=== PATIENT | male | born 1950 | race Caucasian/White ===

== ENCOUNTER → 2018-06-10 | Outpatient (CLI) | payer MEDICARE ==
--- NOTE | 2018-06-10 11:11 | XR ---
EXAMINATION TYPE: XR ribs LT w pa chest xray DATE OF EXAM: 06/10/2018 CLINICAL HISTORY: Chest and left-sided rib pain after fall injury last week. TECHNIQUE: Single frontal view of the chest is obtained. A frontal and oblique images the left-sided ribs are acquired. COMPARISON: Chest x-ray June 24, 2010. FINDINGS: Slight elevation and eventration right hemidiaphragm is redemonstrated. There is chronic pa renchymal change without suspicious focal air space opacity, pleural effusion, or pneumothorax seen. The cardiac silhouette size is mildly enlarged. The osseous structures are intact. Dedicated images of the left-sided ribs show no acute displaced fracture. Overlying soft tissue is un remarkable. IMPRESSION: 1. Chronic parenchymal changes and mild cardiomegaly without acute pulmonary process. 2. No acute displaced left-sided rib fractures are evident.
== END | disposition home or self-care (01) ==
LOC: RADXRYALE 10:28
PROVIDERS: ATTEND Physician Assistant Medical
DX: I51.7 Cardiomegaly (principal); R91.8 Other nonspecific abnormal finding of lung field; R07.82 Intercostal pain

== ENCOUNTER → 2024-08-06 | Outpatient (CLI) | payer MEDICARE ==
--- NOTE | 2024-08-06 12:54 | US ---
EXAMINATION TYPE: US venous doppler duplex LE DATE OF EXAM: 08/06/2024 12:39 PM COMPARISON: NONE CLINICAL INDICATION: Male, 73 years old with history of R60.0 LOCALIZED EDEMA; bilateral pain & swell ing x 2 weeks on and off, pt is currently taking baby aspirin, no hx of dvt TECHNIQUE: The lower extremity deep venous system is examined utilizing real time linear array sonog bridgette with graded compression, color doppler sonography, and spectral doppler. SIDE PERFORMED: Bilateral FINDINGS: VESSELS IMAGED: Common Femoral Vein Deep Femoral Vein Greater Saphenous Vein * Femoral Vein Popliteal Vein Small Saphenous Vein * Proximal Calf Veins (* superficial vessels) Right Leg: appears negative for DVTpatency of the vessels. Spectral waveforms are within normal limi ts. Calf veins slightly limited due to severe edema Left Leg: appears negative for DVT shows patency of the vessels. Spectral waveforms are within gabriel l limits. Calf veins slightly limited due to severe edema Lt groin: varicose veins seen, veins are compressible and shows color doppler flow Probable prominent lymph nodes seen within Lt groin: 4.0x1.0x2.7cm IMPRESSION: 1. No visualized deep venous thrombosis of the bilateral lower extremities. The calf veins are sligh tly limited due to severe edema. 2. Left groin and varicose patent veins identified. 3. Prominent benign-appearing left groin lymph node. [facility], , 08/06/2024 12:51 PM
== END | disposition home or self-care (01) ==
LOC: RADUSWWP 12:06
PROVIDERS: ATTEND Family Medicine
DX: R60.0 Localized edema (principal); R59.0 Localized enlarged lymph nodes
CPT/HCPCS: 93970

== ENCOUNTER 2024-08-30 11:18 | Emergency (ER) | payer MEDICARE ==
[2024-08-30 11:38] VITALS: TEMP 98.2
--- NOTE | 2024-08-30 11:43 | ED ---
Male Urogenital HPI - General Source: patient, RN notes reviewed Mode of arrival: ambulatory Limitations: no limitations <Francisco Omer - Last Filed: 08/30/24 11:41> <Rickey Iglesias - Last Filed: 08/30/24 13:27> - General Chief complaint: Urogenital Stated complaint: Hematuria Time Seen by Provider: 08/30/24 11:27 - History of Present Illness Initial comments: Quick note: This is a 73-year-old male presenting with neighbor for difficulty urinating and blood clots in urine x 3 days. Patient states he was recently at Dr. Aviles's office where he was prescribed antibiotics and Flomax for a UTI and enlarged prostate. States he has been passing blood clots and having difficulty emptying his bladder since that time. 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 Schofield tomorrow. (Francisco Omer) Dictation was produced using ANPI dictation software. please excuse any grammatical, word or spelling errors. Chief Complaint: 73-year-old male with urinary tension History of Present Illness: Patient is a 73-year-old male presents with urinary retention. Neighbor at the bedside states that he has not urinated in 4 days. Patient states he is dealing with a UTI. He has been urinating blood clots. Does complain of some mild suprapubic discomfort The ROS documented in this emergency department record has been reviewed and confirmed by me. Those systems with pertinent positive or negative responses have been documented in the HPI. All other systems are other negative and/or noncontributory. (Rickey Iglesias) - Related Data Home Medications Medication Instructions Recorded Confirmed ALPRAZolam [Xanax] 0.25 mg PO DAILY 09/22/14 11/29/14 Aspirin 81 mg PO DAILY 09/22/14 11/29/14 Atorvastatin [Lipitor] 10 mg PO DAILY 09/22/14 11/29/14 Multivitamin [Men's Multi-Vitamin] 1 each PO DAILY 09/22/14 11/29/14 [place]-3 Fatty Acids/Fish Oil [Fish 1 each PO DAILY 09/22/14 11/29/14 Oil 1,000 mg Softgel] Propranolol [Inderal] 10 mg PO DAILY PRN 09/22/14 11/29/14 Triamterene-Hctz 37.5-25Mg 1 each PO DAILY 09/22/14 11/29/14 [Dyazide] Cholecalciferol [Vitamin D3] 3,000 unit PO DAILY 09/28/14 11/29/14 Desipramine HCl [Norpramin] 10 mg PO HS 11/29/14 11/29/14 Morphine Sulphate 30 mg PO Q4HR PRN 11/29/14 11/29/14 Pregabalin [Lyrica] 1 tab PO Q8HR 11/29/14 11/29/14 Allergies Allergy/AdvReac Type Severity Reaction Status Date / Time cephalexin monohydrate AdvReac Rash/Hives Verified 08/30/24 11:38 [From Keflex] propoxyphene HCl AdvReac Rash/Hives Verified 08/30/24 11:38 [From Darvon] Review of Systems ROS Other: All systems not noted in ROS Statement are negative. <Francisco Omer - Last Filed: 08/30/24 11:41> ROS Other: All systems not noted in ROS Statement are negative. <Rickey Iglesias - Last Filed: 08/30/24 13:27> ROS Statement: Those systems with pertinent positive or pertinent negative responses have been documented in the HPI. Past Medical History Past Medical History: Hyperlipidemia, Musculoskeletal Disorder, Osteoarthritis (OA) History of Any Multi-Drug Resistant Organisms: None Reported Past Surgical History: Hernia Repair, Tonsillectomy Past Anesthesia/Blood Transfusion Reactions: No Reported Reaction Past Psychological History: Anxiety, Panic Disorder Past Alcohol Use History: None Reported Past Drug Use History: None Reported - Past Family History Mother Family Medical History: Cancer Brother(s) Family Medical History: Cancer <Francisco Omer - Last Filed: 08/30/24 11:41> General Exam Limitations: no limitations <Francisco Omer - Last Filed: 08/30/24 11:41> <Rickey Iglesias - Last Filed: 08/30/24 13:27> - General Exam Comments Initial Comments: Visual Physical Exam Vital signs reviewed General: Well-appearing, nontoxic, no acute distress. Head: Normocephalic, atraumatic Eyes: PERRLA, EOMI ENT: Airway patent Chest: Nonlabored breathing Skin: No visual rash, normal skin tone Neuro: Alert and oriented 3 Musculoskeletal: No gross abnormalities (Francisco Omer) PHYSICAL EXAM: General Impression: Alert and oriented x3, not in acute distress HEENT: Normocephalic atraumatic, extra-ocular movements intact, pupils equal and reactive to light bilaterally, mucous membranes moist. Cardiovascular: Heart regular rate and rhythm Chest: Able to complete full sentences, no retractions, no tachypnea Abdomen: abdomen soft, suprapubic fullness, non-distended, no organomegaly Musculoskeletal: Pulses present and equal in all extremities, no peripheral edema Motor: no focal deficits noted Neurological: CN II-XII grossly intact, no focal motor or sensory deficits noted Skin: Intact with no visualized rashes Psych: Normal affect and mood (Rickey Iglesias) Course Vital Signs 08/30/24 11:34 Temperature 98.2 F Pulse Rate 122 H Respiratory 20 Rate Blood Pressure 137/80 O2 Sat by Pulse 96 Oximetry Medical Decision Making <Francisco Omer - Last Filed: 08/30/24 11:41> <Rickey Iglesias - Last Filed: 08/30/24 13:27> - Medical Decision Making I completed the quick note portion of this chart signed BRUCE Johnson (Francisco Omer) Was pt. sent in by a medical professional or institution (LIZZY Nash, REFRIGERATION PLANT CORK INSULATOR, urgent care, hospital, or penitentiary...) When possible be specific @ -No Did you speak to anyone other than the patient for history (EMS, parent, family, police, friend...)? What history was obtained from this source @ -No Did you review nursing and triage notes (agree or disagree)? Why? @ -I reviewed and agree with nursing and triage notes Were old charts reviewed (outside hosp., previous admission, EMS record, old EKG, old radiological studies, urgent care reports/EKG's, penitentiary records)? Report findings @ -No old charts were reviewed Differential Diagnosis (chest pain, altered mental status, abdominal pain women, abdominal pain men, vaginal bleeding, musculoskeletal, weakness, fever, dyspnea, syncope, headache, dizziness, GI bleed, back pain, seizure, CVA, palpatations, mental health)? @ -Differential Abdominal Pain Men: Appendicitis, cholecystitis, diverticulosis, ischemic bowel, pancreatitis, hepatitis, UTI, gastroenteritis, AAA, incarcerated hernia, bowel obstruction, constipation, inflammatory bowel, hepatitis, peptic ulcer disease, splenic infa rction, perforated viscus, testicular torsion, this is not meant to be an all- inclusive list EKG interpreted by me (3pts min.). @ -None done X-rays interpreted by me (1pt min.). @ -None done CT interpreted by me (1pt min.). @ -None done U/S interpreted by me (1pt. min.). @ -None done What testing was considered but not performed or refused? (CT, X-rays, U/S, labs)? Why? @ -None What meds were considered but not given or refused? Why? @ -None Was smoking cessation discussed for >3mins.? @ -No Were there social determinants of health that impacted care today? How? (Homelessness, low income, unemployed, alcoholism, drug addiction, transportation, low edu. Level, literacy, decrease access to med. care, correction, rehab)? @ -No Was there de-escalation of care discussed even if they declined (Discuss DNR or withdrawal of care, Hospice)? DNR status @ -No What co-morbidities impacted this encounter? (DM, HTN, Smoking, COPD, CAD, Cancer, CVA, ARF, Chemo, Hep., AIDS, mental health diagnosis, sleep apnea, morbid obesity)? @ -None Was patient admitted / discharged? Hospital course, mention meds given and route, prescriptions, significant lab abnormalities, going to OR and other pertinent info. @ -73-year-old male with urinary tension. Bladder scan shows 750 cc of urine. Caceres catheter placed with bloody urine collected at the Caceres bag. Patient reports significant improvement of his symptoms. Urine was bloody. Caceres catheter flushed till some clearance was achieved. Pending metabolic panel. Patient discharged with referral to urology. Did you discuss the management of the patient with other professionals (professionals i.e. , PA, REFRIGERATION PLANT CORK INSULATOR, lab, RT, psych nurse, foster care social worker, surveillance technician, teacher, chief supply chain officer, shelter case manager)? Give summary @ -No Was critical care preformed (if so, how long)? @ -No Undiagnosed new problem with uncertain prognosis? @ -No Drug Therapy requiring intensive monitoring for toxicity (Heparin, Nitro, Insulin, Cardizem)? @ -No Were any procedures done? @ -No Diagnosis/symptom? Acute, or Chronic, or Acute on Chronic? Uncomplicated (without systemic symptoms) or Complicated (systemic symptoms)? @ -Urinary retention Side effects of treatment? @ -No Exacerbation, Progression, or Severe Exacerbation? @ -No Poses a threat to life or bodily function? How? (Chest pain, [place], [place], pneumonia, PE, COPD, DKA, ARF, appy, cholecystitis, CVA, Diverticulitis, Homicidal, Suicidal, threat to staff... and all critical care pts) @ -yes (Rickey Iglesias) - Lab Data Lab Results 08/30/24 Range/Units 12:18 Urine Color Dark Red Urine Appearance Bloody (Clear) Urine RBC >182 H (0-5) /hpf Urine WBC 54 H (0-5) /hpf Disposition <Francisco Omer - Last Filed: 08/30/24 11:41> Is patient prescribed a controlled substance at d/c from ED?: No Time of Disposition: 13:27 <Rickey Iglesias - Last Filed: 08/30/24 13:27> Clinical Impression: Urinary retention Disposition: HOME SELF-CARE Condition: Good Instructions (If sedation given, give patient instructions): Caceres Catheter Placement and Care (ED) Referrals: Evens Rubi MD [STAFF PHYSICIAN] - 1-2 days
[2024-08-30 12:31] LABS: RBC,Urine >182 /hpf (0-5); WBC,Urine 54 /hpf (0-5)
[2024-08-30 12:32] LABS: Appearance,Urine Bloody (Clear); Color,Urine Dark Red
[2024-08-30 14:06] VITALS: BP 134/79; PULSE 99; RESP 18
[2024-08-30 14:32] LABS: African American GFR (CKD) 86 (>60 ml/min/1.73 sqM); Anion Gap 13 mmol/L; Blood Urea Nitrogen 17 mg/dL (9-20); Calcium 9.5 mg/dL (8.4-10.2); Carbon Dioxide 29 mmol/L (22-30); Chloride 92 mmol/L (98-107); Glucose 136 mg/dL (74-99); Non-African American GFR(CKD) 75 (>60 ml/min/1.73 sqM); Potassium 3.4 mmol/L (3.5-5.1); Sodium 134 mmol/L (137-145)
== END 2024-08-30 14:30 | disposition home or self-care (01) ==
LOC: EC 11:18
DX: R33.9 Retention of urine, unspecified (principal); Z88.1 Allergy status to other antibiotic agents; Z88.5 Allergy status to narcotic agent
CPT/HCPCS: 36415; 51702; 51798; 80048; 81001; 87086; 99283

== ENCOUNTER 2024-09-01 09:14 | Emergency (ER) | payer MEDICARE ==
[2024-09-01 09:19] VITALS: RESP 20
--- NOTE | 2024-09-01 09:52 | ED ---
Male Urogenital HPI - General Chief complaint: Urogenital Stated complaint: cath leaking Time Seen by Provider: 09/01/24 09:16 Source: patient, RN notes reviewed Mode of arrival: ambulatory Limitations: no limitations - History of Present Illness Initial comments: 73-year-old male presents emergency department with chief complaint of leaking Caceres catheter. Patient had a Caceres catheter placed 2 days ago secondary to hematuria, UTI and urinary retention. Patient is scheduled follow-up with urology in a week or 2. Patient states the catheter is leaking when he gets a large amount of pressure. - Related Data Home Medications Medication Instructions Recorded Confirmed ALPRAZolam [Xanax] 0.25 mg PO DAILY 09/22/14 11/29/14 Aspirin 81 mg PO DAILY 09/22/14 11/29/14 Atorvastatin [Lipitor] 10 mg PO DAILY 09/22/14 11/29/14 Multivitamin [Men's Multi-Vitamin] 1 each PO DAILY 09/22/14 11/29/14 [place]-3 Fatty Acids/Fish Oil [Fish 1 each PO DAILY 09/22/14 11/29/14 Oil 1,000 mg Softgel] Propranolol [Inderal] 10 mg PO DAILY PRN 09/22/14 11/29/14 Triamterene-Hctz 37.5-25Mg 1 each PO DAILY 09/22/14 11/29/14 [Dyazide] Cholecalciferol [Vitamin D3] 3,000 unit PO DAILY 09/28/14 11/29/14 Desipramine HCl [Norpramin] 10 mg PO HS 11/29/14 11/29/14 Morphine Sulphate 30 mg PO Q4HR PRN 11/29/14 11/29/14 Pregabalin [Lyrica] 1 tab PO Q8HR 11/29/14 11/29/14 Allergies Allergy/AdvReac Type Severity Reaction Status Date / Time cephalexin monohydrate AdvReac Rash/Hives Verified 09/01/24 09:19 [From Keflex] propoxyphene HCl AdvReac Rash/Hives Verified 09/01/24 09:19 [From Darvon] Review of Systems ROS Statement: Those systems with pertinent positive or pertinent negative responses have been documented in the HPI. ROS Other: All systems not noted in ROS Statement are negative. Past Medical History Past Medical History: Hyperlipidemia, Musculoskeletal Disorder, Osteoarthritis (OA) History of Any Multi-Drug Resistant Organisms: None Reported Past Surgical History: Hernia Repair, Tonsillectomy Past Anesthesia/Blood Transfusion Reactions: No Reported Reaction Past Psychological History: Anxiety, Panic Disorder Smoking Status: Never smoker Past Alcohol Use History: None Reported Past Drug Use History: None Reported - Past Family History Mother Family Medical History: Cancer Brother(s) Family Medical History: Cancer General Exam Limitations: no limitations General appearance: alert, in no apparent distress Head exam: Present: atraumatic, normocephalic, normal inspection Neck exam: Present: normal inspection, full ROM. Absent: tenderness, meningismus, lymphadenopathy Respiratory exam: Present: normal lung sounds bilaterally. Absent: respiratory distress, wheezes, rales, rhonchi, stridor Cardiovascular Exam: Present: regular rate, normal rhythm, normal heart sounds. Absent: systolic murmur, diastolic murmur, rubs, gallop, clicks GI/Abdominal exam: Present: soft, normal bowel sounds. Absent: distended, tenderness, guarding, rebound, rigid Course Vital Signs 09/01/24 09/01/24 09:16 11:01 Temperature 97.4 F L 98.9 F Pulse Rate 96 90 Respiratory 20 20 Rate Blood Pressure 133/83 138/74 O2 Sat by Pulse 97 98 Oximetry Medical Decision Making - Medical Decision Making Was pt. sent in by a medical professional or institution (LIZZY Nash, PROGRAM CLINICIAN, urgent care, hospital, or long term...) When possible be specific @ -[No] Did you speak to anyone other than the patient for history (EMS, parent, family, police, friend...)? What history was obtained from this source @ -[No] Did you review nursing and triage notes (agree or disagree)? Why? @ -[I reviewed and agree with nursing and triage notes] Were old charts reviewed (outside hosp., previous admission, EMS record, old EKG, old radiological studies, urgent care reports/EKG's, long term records)? Report findings @ -[No old charts were reviewed] Differential Diagnosis (chest pain, altered mental status, abdominal pain women, abdominal pain men, vaginal bleeding, weakness, fever, dyspnea, syncope, headache, dizziness, GI bleed, back pain, seizure, CVA, palpatations, mental health, musculoskeletal)? @ -Hematuria, UTI, Caceres catheter complication, urinary retention EKG interpreted by me (3pts min.). @ -None X-rays interpreted by me (1pt min.). @ -[None done] CT interpreted by me (1pt min.). @ -[None done] U/S interpreted by me (1pt. min.). @ -[None done] What testing was considered but not performed or refused? (CT, X-rays, U/S, labs)? Why? @ -[None] What meds were considered but not given or refused? Why? @ -[None] Did you discuss the management of the patient with other professionals (professionals i.e. Dr., PA, PROGRAM CLINICIAN, lab, RT, psych nurse, drug abuse social worker, dental insurance coordinator, teacher, special skills officer, returned case inspector)? Give summary @ -[No] Was smoking cessation discussed for >3mins.? @ -[No] Was critical care preformed (if so, how long)? @ -[No] Were there social determinants of health that impacted care today? How? (Homelessness, low income, unemployed, alcoholism, drug addiction, transporta tion, low edu. Level, literacy, decrease access to med. care, fpc, rehab)? @ -[No] Was there de-escalation of care discussed even if they declined (Discuss DNR or withdrawal of care, Hospice)? DNR status @ -[No] What co-morbidities impacted this encounter? (DM, HTN, Smoking, COPD, CAD, Cancer, CVA, ARF, Chemo, Hep., AIDS, mental health diagnosis, sleep apnea, morbid obesity)? @ -[None] Was patient admitted / discharged? Hospital course, mention meds given and route, prescriptions, significant lab abnormalities, going to OR and other pertinent info. @ -Discharge Caceres catheter was removed patient was able to urinate did urinate some blood clots has empty bladder at this time will be discharged without Caceres catheter and return parameters anayeli. Undiagnosed new problem with uncertain prognosis? @ -[No] Drug Therapy requiring intensive monitoring for toxicity (Heparin, Nitro, Insulin, Cardizem)? @ -[No] Were any procedures done? @ -[No] Diagnosis/symptom? @ -Urinary rretension history, hematuria Acute, or Chronic, or Acute on Chronic? @ -Acute Uncomplicated (without systemic symptoms) or Complicated (systemic symptoms)? @Uncomplicated Side effects of treatment? @ -[No] Exacerbation, Progression, or Severe Exacerbation? @ -[No] Poses a threat to life or bodily function? How? (Chest pain, [place], [place], pneumonia, PE, COPD, DKA, ARF, appy, cholecystitis, CVA, Diverticulitis, Homicidal, [place]acia icidal, threat to staff... and all critical care pts) @ -[No] Disposition Clinical Impression: Hematuria, Urinary retention Disposition: HOME SELF-CARE Condition: Stable Instructions (If sedation given, give patient instructions): Hematuria (ED) Additional Instructions: Please return to the Emergency Department if symptoms worsen or any other concerns. Is patient prescribed a controlled substance at d/c from ED?: No Referrals: Aaron Aviles DO [Primary Care Provider] - 1-2 days Time of Disposition: 10:52
[2024-09-01 11:03] VITALS: BP 138/74; PULSE 90; TEMP 98.9
== END 2024-09-01 11:03 | disposition home or self-care (01) ==
LOC: EC 09:14
DX: R31.9 Hematuria, unspecified (principal); R33.9 Retention of urine, unspecified; Z88.1 Allergy status to other antibiotic agents; Z88.8 Allergy status to other drugs, medicaments and biological substances
CPT/HCPCS: 99283

== ENCOUNTER 2024-09-02 08:53 | Emergency (ER) | payer MEDICARE ==
[2024-09-02 09:10] VITALS: TEMP 97.8
--- NOTE | 2024-09-02 09:19 | ED ---
Male Urogenital HPI - General Chief complaint: Urogenital Stated complaint: Urogenital Time Seen by Provider: 09/02/24 09:11 Source: patient, RN notes reviewed Mode of arrival: ambulatory Limitations: no limitations - History of Present Illness Initial comments: 73-year-old male presents emergency department chief complaint of urinary retention. Patient's been in the hospital recently from hematuria, urine retention. Patient Caceres catheter removed yesterday states he was urinating throughout the day but since midnight has not urinated states has had increasing abdominal pain and pressure. Patient did try contacting urology again was unable to be seen. Patient offers no other complaints - Related Data Home Medications Medication Instructions Recorded Confirmed ALPRAZolam [Xanax] 0.25 mg PO DAILY 09/22/14 11/29/14 Aspirin 81 mg PO DAILY 09/22/14 11/29/14 Atorvastatin [Lipitor] 10 mg PO DAILY 09/22/14 11/29/14 Multivitamin [Men's Multi-Vitamin] 1 each PO DAILY 09/22/14 11/29/14 [place]-3 Fatty Acids/Fish Oil [Fish 1 each PO DAILY 09/22/14 11/29/14 Oil 1,000 mg Softgel] Propranolol [Inderal] 10 mg PO DAILY PRN 09/22/14 11/29/14 Triamterene-Hctz 37.5-25Mg 1 each PO DAILY 09/22/14 11/29/14 [Dyazide] Cholecalciferol [Vitamin D3] 3,000 unit PO DAILY 09/28/14 11/29/14 Desipramine HCl [Norpramin] 10 mg PO HS 11/29/14 11/29/14 Morphine Sulphate 30 mg PO Q4HR PRN 11/29/14 11/29/14 Pregabalin [Lyrica] 1 tab PO Q8HR 11/29/14 11/29/14 Allergies Allergy/AdvReac Type Severity Reaction Status Date / Time cephalexin monohydrate AdvReac Rash/Hives Verified 09/02/24 09:10 [From Keflex] propoxyphene HCl AdvReac Rash/Hives Verified 09/02/24 09:10 [From Darvon] Review of Systems ROS Statement: Those systems with pertinent positive or pertinent negative responses have been documented in the HPI. ROS Other: All systems not noted in ROS Statement are negative. Past Medical History Past Medical History: Hyperlipidemia, Musculoskeletal Disorder, Osteoarthritis (OA) History of Any Multi-Drug Resistant Organisms: None Reported Past Surgical History: Hernia Repair, Tonsillectomy Past Anesthesia/Blood Transfusion Reactions: No Reported Reaction Past Psychological History: Anxiety, Panic Disorder Smoking Status: Never smoker Past Alcohol Use History: None Reported Past Drug Use History: None Reported - Past Family History Mother Family Medical History: Cancer Brother(s) Family Medical History: Cancer General Exam Limitations: no limitations General appearance: alert, in no apparent distress Head exam: Present: atraumatic, normocephalic, normal inspection Eye exam: Present: normal appearance, PERRL, EOMI. Absent: scleral icterus, conjunctival injection, periorbital swelling ENT exam: Present: normal exam, normal oropharynx, mucous membranes moist Neck exam: Present: normal inspection, full ROM. Absent: tenderness, meningismus, lymphadenopathy Respiratory exam: Present: normal lung sounds bilaterally. Absent: respiratory distress, wheezes, rales, rhonchi, stridor Cardiovascular Exam: Present: regular rate, normal rhythm, normal heart sounds. Absent: systolic murmur, diastolic murmur, rubs, gallop, clicks GI/Abdominal exam: Present: soft, normal bowel sounds. Absent: distended, tenderness, guarding, rebound, rigid Course Vital Signs 09/02/24 09/02/24 09/02/24 09:08 14:18 14:45 Temperature 97.8 F Pulse Rate 95 92 86 Respiratory 16 18 16 Rate Blood Pressure 98/64 114/78 134/67 O2 Sat by Pulse 98 98 95 Oximetry 09/02/24 15:47 Temperature Pulse Rate 82 Respiratory 18 Rate Blood Pressure 123/74 O2 Sat by Pulse 99 Oximetry Medical Decision Making - Medical Decision Making Was pt. sent in by a medical professional or institution (, PA, TRANSFORMER COIL WINDER, urgent care, hospital, or prison...) When possible be specific @ -No Did you speak to anyone other than the patient for history (EMS, parent, family, police, friend...)? What history was obtained from this source @ -No Did you review nursing and triage notes (agree or disagree)? Why? @ -I reviewed and agree with nursing and triage notes Were old charts reviewed (outside hosp., previous admission, EMS record, old EKG, old radiological studies, urgent care reports/EKG's, prison records)? Report findings @ -No old charts were reviewed Differential Diagnosis (chest pain, altered mental status, abdominal pain women, abdominal pain men, vaginal bleeding, weakness, fever, dyspnea, syncope, headache, dizziness, GI bleed, back pain, seizure, CVA, palpatations, mental health, musculoskeletal)? @ -Urinary retention, hematuria EKG interpreted by me (3pts min.). @ -As above X-rays interpreted by me (1pt min.). @ -None done CT interpreted by me (1pt min.). @ -None done U/S interpreted by me (1pt. min.). @ -None done What testing was considered but not performed or refused? (CT, X-rays, U/S, labs)? Why? @ -None What meds were considered but not given or refused? Why? @ -None Did you discuss the management of the patient with other professionals (professionals i.e. , PA, TRANSFORMER COIL WINDER, lab, RT, psych nurse, social work assistant, chief cardiopulmonary technologist, teacher, aoc aadc operations staff officer, case management specialist)? Give summary @ -Discussed the case with Dr. barrientos on-call urology recommended this further irrigation and follow-up in office tomorrow] Was smoking cessation discussed for >3mins.? @ -No Was critical care preformed (if so, how long)? @ -No Were there social determinants of health that impacted care today? How? (Homelessness, low income, unemployed, alcoholism, drug addiction, transportation, low edu. Level, literacy, decrease access to med. care, [facility], rehab)? @ -No Was there de-escalation of care discussed even if they declined (Discuss DNR or withdrawal of care, Hospice)? DNR status @ -No What co-morbidities impacted this encounter? (DM, HTN, Smoking, COPD, CAD, Cancer, CVA, ARF, Chemo, Hep., AIDS, mental health diagnosis, sleep apnea, morbid obesity)? @ -None Was patient admitted / discharged? Hospital course, mention meds given and route, prescriptions, significant lab abnormalities, going to OR and other pertinent info. @ -[This charged patient presented again for urinary retention, continued hematuria. Patient does have mild anemia, mild hyponatremia. Patient was offered admission to medicine given ongoing persistent symptoms and irrigation for several hours in the emergency department. He states that he feels better at this time does not want to be admitted and will follow-up with an office to urology tomorrow. Undiagnosed new problem with uncertain prognosis? @ -No Drug Therapy requiring intensive monitoring for toxicity (Heparin, Nitro, Insulin, Cardizem)? @ -No Were any procedures done? @ -No Diagnosis/symptom? @ -Urinary retention, hematuria Acute, or Chronic, or Acute on Chronic? @ -Acute Uncomplicated (without systemic symptoms) or Complicated (systemic symptoms)? @ -Complicated Side effects of treatment? @ -No Exacerbation, Progression, or Severe Exacerbation? @ -No Poses a threat to life or bodily function? How? (Chest pain, [place], [place], pneumonia, PE, COPD, DKA, ARF, appy, cholecystitis, CVA, Diverticulitis, Homicidal, Suicidal, threat to staff... and all critical care pts) @ -No - Lab Data Result diagrams: 09/02/24 11:28 09/02/24 11:28 Lab Results 09/02/24 09/02/24 Range/Units 11:28 11:28 WBC 8.29 (4.50-10.00) 10*3/uL RBC 3.03 L (4.40-5.60) 10*6/uL Hgb 9.2 L (13.0-17.0) g/dL Hct 25.9 L (39.6-50.0) % MCV 85.5 (80.0-97.0) fL MCH 30.4 (27.0-32.0) pg MCHC 35.5 (32.0-37.0) g/dL Plt Count 208 (140-440) 10*3/uL MPV 12.2 (9.5-12.2) fL Immature Gran % (Auto) 0.5 % Neutrophils % 69.8 % Lymphocytes % 20.6 % Monocytes % 8.2 % Eosinophils % 0.2 % Basophils % 0.7 % Immature Gran # 0.04 (0.00-0.04) 10*3/uL Neutrophils # 5.78 (1.80-7.70) 10*3/uL Lymphocytes # 1.71 (0.90-5.00) 10*3/uL Monocytes # 0.68 (0.20-1.00) 10*3/uL Eosinophils # 0.02 L (0.04-0.35) 10*3/uL Basophils # 0.06 (0.00-0.10) 10*3/uL Sodium 127 L (137-145) mmol/L Potassium 3.8 (3.5-5.1) mmol/L Chloride 87 L (98-107) mmol/L Carbon Dioxide 32 H (22-30) mmol/L Anion Gap 8 mmol/L BUN 20 (9-20) mg/dL Creatinine 1.08 (0.66-1.25) mg/dL Est GFR (CKD-EPI)AfAm 78 (>60 ml/min/1.73 sqM) Est GFR (CKD-EPI)NonAf 67 (>60 ml/min/1.73 sqM) Glucose 118 H (74-99) mg/dL Calcium 9.2 (8.4-10.2) mg/dL Total Bilirubin 0.7 (0.2-1.3) mg/dL AST 30 (17-59) U/L ALT 18 (4-49) U/L Alkaline Phosphatase 97 (38-126) U/L Total Protein 6.1 L (6.3-8.2) g/dL Albumin 3.8 (3.5-5.0) g/dL Disposition Clinical Impression: Urinary retention, Hematuria Disposition: HOME SELF-CARE Condition: Stable Instructions (If sedation given, give patient instructions): Urinary Retention in Men (ED) Additional Instructions: Please return to the Emergency Department if symptoms worsen or any other henrique rns. Is patient prescribed a controlled substance at d/c from ED?: No Referrals: Aaron Aviles DO [Primary Care Provider] - 1-2 days Trae Anderson MD [STAFF PHYSICIAN] - 1-2 days Time of Disposition: 15:22
[2024-09-02] MEDS: LIDOCAINE 2% URO-JET JELLY 5 ML KIT URETHRAL ONE ×2 (09:30→13:50)
[2024-09-02 11:36] LABS: Basophils # (A) 0.06 10*3/uL (0.00-0.10); Basophils % (A) 0.7 %; Eosinophils # (A) 0.02 10*3/uL (0.04-0.35); Eosinophils % (A) 0.2 %; HCT 25.9 % (39.6-50.0); HGB 9.2 g/dL (13.0-17.0); Lymphocytes # (A) 1.71 10*3/uL (0.90-5.00); Lymphocytes % (A) 20.6 %; MCH 30.4 pg (27.0-32.0); MCHC 35.5 g/dL (32.0-37.0); MCV 85.5 fL (80.0-97.0); Mean Platelet Volume 12.2 fL (9.5-12.2); Monocytes # (A) 0.68 10*3/uL (0.20-1.00); Monocytes % (A) 8.2 %; Neutrophils # (A) 5.78 10*3/uL (1.80-7.70); Neutrophils % (A) 69.8 %; Platelet Count 208 10*3/uL (140-440); RBC 3.03 10*6/uL (4.40-5.60); RDW 12.1 % (11.5-14.5); WBC 8.29 10*3/uL (4.50-10.00)
[2024-09-02 11:54] LABS: ALT 18 U/L (4-49); AST 30 U/L (17-59); African American GFR (CKD) 78 (>60 ml/min/1.73 sqM); Albumin 3.8 g/dL (3.5-5.0); Alkaline Phosphatase 97 U/L (38-126); Anion Gap 8 mmol/L; Blood Urea Nitrogen 20 mg/dL (9-20); Calcium 9.2 mg/dL (8.4-10.2); Carbon Dioxide 32 mmol/L (22-30); Chloride 87 mmol/L (98-107); Glucose 118 mg/dL (74-99); Non-African American GFR(CKD) 67 (>60 ml/min/1.73 sqM); Potassium 3.8 mmol/L (3.5-5.1); Sodium 127 mmol/L (137-145); Total Bilirubin 0.7 mg/dL (0.2-1.3); Total Protein 6.1 g/dL (6.3-8.2)
[2024-09-02] MEDS: MORPHINE SULFATE 4 MG/ML SYRINGE IVP STA ×2 (13:50→15:39)
[2024-09-02] MEDS: SODIUM CHLORIDE 0.9% IRRIGATIO 3,000 ML IRRIGATION ONE (14:16)
[2024-09-02 15:56] VITALS: BP 123/74; PULSE 82; RESP 18
== END 2024-09-02 15:58 | disposition home or self-care (01) ==
LOC: EC 08:53
DX: R33.9 Retention of urine, unspecified (principal); R31.9 Hematuria, unspecified; Z88.1 Allergy status to other antibiotic agents; Z88.8 Allergy status to other drugs, medicaments and biological substances
CPT/HCPCS: 51798; 36415; 80053; 85025; 99283; 96374; 96376; 51702; J2270

== ENCOUNTER 2024-09-02 19:40 | Emergency (ER) | payer MEDICARE ==
[2024-09-02 20:02] VITALS: RESP 18
--- NOTE | 2024-09-02 20:35 | ED ---
General Adult HPI - General Chief complaint: Urogenital Stated complaint: Just DC today - catheter issues Time Seen by Provider: 09/02/24 20:03 Source: patient, RN notes reviewed Mode of arrival: wheelchair - History of Present Illness Initial comments: 73-year-old male presenting for reevaluation of Armstrong catheter malfunction. Patient presented earlier today for complaints of urinary retention was discharged with Armstrong catheter in place. Patient states that he has an appointment scheduled tomorrow with urologist. Patient states that he will experience a bladder spasm with a large burst of urine that will slightly drain around the catheter site. Denies associated nausea, vomiting, fevers, chills. Is currently on antibiotics for UTI however is unaware what the name of this medication is. - Related Data Home Medications Medication Instructions Recorded Confirmed ALPRAZolam [Xanax] 0.25 mg PO DAILY 09/22/14 11/29/14 Aspirin 81 mg PO DAILY 09/22/14 11/29/14 Atorvastatin [Lipitor] 10 mg PO DAILY 09/22/14 11/29/14 Multivitamin [Men's Multi-Vitamin] 1 each PO DAILY 09/22/14 11/29/14 [place]-3 Fatty Acids/Fish Oil [Fish 1 each PO DAILY 09/22/14 11/29/14 Oil 1,000 mg Softgel] Propranolol [Inderal] 10 mg PO DAILY PRN 09/22/14 11/29/14 Triamterene-Hctz 37.5-25Mg 1 each PO DAILY 09/22/14 11/29/14 [Dyazide] Cholecalciferol [Vitamin D3] 3,000 unit PO DAILY 09/28/14 11/29/14 Desipramine HCl [Norpramin] 10 mg PO HS 11/29/14 11/29/14 Morphine Sulphate 30 mg PO Q4HR PRN 11/29/14 11/29/14 Pregabalin [Lyrica] 1 tab PO Q8HR 11/29/14 11/29/14 Allergies Allergy/AdvReac Type Severity Reaction Status Date / Time cephalexin monohydrate AdvReac Rash/Hives Verified 09/02/24 20:02 [From Keflex] propoxyphene HCl AdvReac Rash/Hives Verified 09/02/24 20:02 [From Darvon] Review of Systems ROS Statement: Those systems with pertinent positive or pertinent negative responses have been documented in the HPI. ROS Other: All systems not noted in ROS Statement are negative. Past Medical History Past Medical History: Hyperlipidemia, Musculoskeletal Disorder, Osteoarthritis (OA) History of Any Multi-Drug Resistant Organisms: None Reported Past Surgical History: Hernia Repair, Tonsillectomy Past Anesthesia/Blood Transfusion Reactions: No Reported Reaction Past Psychological History: Anxiety, Panic Disorder Smoking Status: Never smoker Past Alcohol Use History: None Reported Past Drug Use History: None Reported - Past Family History Mother Family Medical History: Cancer Brother(s) Family Medical History: Cancer General Exam General appearance: alert, in no apparent distress ENT exam: Present: normal exam, mucous membranes moist Neck exam: Present: normal inspection. Absent: tenderness, meningismus, lymphadenopathy Respiratory exam: Present: normal lung sounds bilaterally. Absent: respiratory distress, wheezes, rales, rhonchi, stridor Cardiovascular Exam: Present: regular rate, normal rhythm, normal heart sounds. Absent: systolic murmur, diastolic murmur, rubs, gallop, clicks GI/Abdominal exam: Present: soft, normal bowel sounds. Absent: distended, tenderness, guarding, rebound, rigid Extremities exam: Present: normal inspection, full ROM, normal capillary refill. Absent: tenderness, pedal edema, joint swelling, calf tenderness Back exam: Present: normal inspection. Absent: CVA tenderness (R), CVA tenderness (L) Course Vital Signs 09/02/24 09/02/24 19:57 21:38 Temperature 97.6 F 98.2 F Pulse Rate 102 H 100 Respiratory 18 18 Rate Blood Pressure 101/64 103/62 O2 Sat by Pulse 97 96 Oximetry Medical Decision Making - Medical Decision Making Was pt. sent in by a medical professional or institution (, PA, DOMAIN ARCHITECT, urgent care, hospital, or snf...) When possible be specific @ -No Did you speak to anyone other than the patient for history (EMS, parent, family, police, friend...)? What history was obtained from this source @ -No Did you review nursing and triage notes (agree or disagree)? Why? @ -I reviewed and agree with nursing and triage notes Were old charts reviewed (outside hosp., previous admission, EMS record, old EKG, old radiological studies, urgent care reports/EKG's, snf records)? Report findings @ -Reviewed patient's ER visit note from 09/02/2024 earlier in the day where he was discharged with catheter in place. Differential Diagnosis (chest pain, altered mental status, abdominal pain women, abdominal pain men, vaginal bleeding, weakness, fever, dyspnea, syncope, headache, dizziness, GI bleed, back pain, seizure, CVA, palpatations, mental health, musculoskeletal)? @ -Armstrong catheter malfunction EKG interpreted by me (3pts min.). @ -None X-rays interpreted by me (1pt min.). @ -None done CT interpreted by me (1pt min.). @ -None done U/S interpreted by me (1pt. min.). @ -None done What testing was considered but not performed or refused? (CT, X-rays, U/S, labs)? Why? @ -None What meds were considered but not given or refused? Why? @ -None Did you discuss the management of the patient with other professionals (professionals i.e. , PA, DOMAIN ARCHITECT, lab, RT, psych nurse, social media marketing analyst, educational resource center teacher, teacher, facility security officer, case making machine operator)? Give summary @ -No Was smoking cessation discussed for >3mins.? @ -No Was critical care preformed (if so, how long)? @ -No Were there social determinants of health that impacted care today? How? (Homelessness, low income, unemployed, alcoholism, drug addiction, transportation, low edu. Level, literacy, decrease access to med. care, skilled nursing, rehab)? @ -No Was there de-escalation of care discussed even if they declined (Discuss DNR or withdrawal of care, Hospice)? DNR status @ -No What co-morbidities impacted this encounter? (DM, HTN, Smoking, COPD, CAD, Cancer, CVA, ARF, Chemo, Hep., AIDS, mental health diagnosis, sleep apnea, morbid obesity)? @ -None Was patient admitted / discharged? Hospital course, mention meds given and route, prescriptions, significant lab abnormalities, going to OR and other pertinent info. @ -Discharge. 73 year old male presenting with complaints of Armstrong catheter malfunction. Nursing staff was able to successfully flush Armstrong with appropriate drainage. Patient is appointment scheduled tomorrow with urology. Case discussed with Dr. dykes Undiagnosed new problem with uncertain prognosis? @ -No Drug Therapy requiring intensive monitoring for toxicity (Heparin, Nitro, Insulin, Cardizem)? @ -No Were any procedures done? @ -No Diagnosis/symptom? @ -armstrong cath malfunction Acute, or Chronic, or Acute on Chronic? @ -acute Uncomplicated (without systemic symptoms) or Complicated (systemic symptoms)? @ -uncomplicated Side effects of treatment? @ -No Exacerbation, Progression, or Severe Exacerbation? @ -No Poses a threat to life or bodily function? How? (Chest pain, [place], [place], pneumonia, PE, COPD, DKA, ARF, appy, cholecystitis, CVA, Diverticulitis, Homicidal, Suicidal, threat to staff... and all critical care pts) @ -No Disposition Clinical Impression: Urinary catheter dysfunction Disposition: HOME SELF-CARE Condition: Stable Instructions (If sedation given, give patient instructions): Armstrong Catheter Placement and Care (ED) Additional Instructions: Please return to the Emergency Department if symptoms worsen or any other concerns. Is patient prescribed a controlled substance at d/c from ED?: No Referrals: Aaron Aviles DO [Primary Care Provider] - 1-2 days Time of Disposition: 21:23
[2024-09-02 21:39] VITALS: BP 103/62; PULSE 100; TEMP 98.2
== END 2024-09-02 21:46 | disposition home or self-care (01) ==
LOC: EC 19:40
DX: T83.011A Breakdown (mechanical) of indwelling urethral catheter, initial encounter (principal); Z88.8 Allergy status to other drugs, medicaments and biological substances
CPT/HCPCS: 99283

== ENCOUNTER 2024-09-08 10:50 | Inpatient (IN) | payer MEDICARE ==
--- NOTE | 2024-09-08 09:35 | P.HPIHPCON ---
History of Present Illness H&P Date: 09/08/24 Chief Complaint: Gross hematuria This is a 74-year-old male with history of gross hematuria. Patient has been having gross hematuria's for the past week, he is currently catheter dependent secondary to clot retention. Underwent an office cystoscopy, I was unable to get a good visualization of the bladder secondary to significant clot burden in the bladder. Discussed with him the next up would be to proceed with a cystoscopy and clot evacuation, following the clot evacuation will fully evaluate the bladder. Discussed with him if there is evidence of tumor within the bladder then we will proceed with TURBT. Discussed also potential of doing a bilateral retrograde pyelogram to evaluate the upper tract. Risk of bleeding, infection, bladder perforation was discussed. He understood all the risk and agreed to proceed Consent for Procedure: I have explained the operation/procedure to the patient, including the risks, benefits, side effects, alternative therapies (including not receiving the proposed treatment or service), the likelihood of the patient achieving his/her goals, and potential recuperation problems for the procedure/sedation/analgesia, as well as any blood products, if indicated. I also explained to the patient the risks, benefits and side effects of the alternatives, as well as the risks related to not receiving the proposed procedure, care, treatment, or services. Past Medical History Past Medical History: Hyperlipidemia, Hypertension, Musculoskeletal Disorder, Osteoarthritis (OA) Additional Past Medical History / Comment(s): gentry leg swelling, currently on antibiotics for UTI, has urinary catheter. pt c/o recent weakness & fatigue. chronic back pain, scoliosis, ruptured discs. History of Any Multi-Drug Resistant Organisms: None Reported Past Surgical History: Hernia Repair, Tonsillectomy Additional Past Surgical History / Comment(s): colonoscopy Past Anesthesia/Blood Transfusion Reactions: No Reported Reaction Smoking Status: Never smoker - Past Family History Mother Family Medical History: Cancer Brother(s) Family Medical History: Cancer Additional Family Medical History / Comment(s): prostate ca Medications and Allergies Home Medications Medication Instructions Recorded Confirmed Type ALPRAZolam [Xanax] 0.25 mg PO DAILY PRN 09/22/14 09/04/24 History Aspirin 81 mg PO DAILY 09/22/14 09/04/24 History Atorvastatin [Lipitor] 10 mg PO DAILY 09/22/14 09/04/24 History Propranolol [Inderal] 10 mg PO DAILY PRN 09/22/14 09/04/24 History Bumetanide [Bumex] 1 mg PO TID 09/04/24 09/04/24 History Ciprofloxacin HCl [Cipro] 500 mg PO BID 09/04/24 09/04/24 History Ergocalciferol [Vitamin D2 (1250 1,250 mcg PO WEEKLY 09/04/24 09/04/24 History Mcg = [id number] Iu)] Losartan [Cozaar] 25 mg PO DAILY 09/04/24 09/04/24 History Morphine Sulfate Ir [MSIR] 30 mg PO Q4HR PRN 09/04/24 09/04/24 History Potassium Chloride ER [K-Dur 10] 10 meq PO DAILY 09/04/24 09/04/24 History Tamsulosin [Flomax] 0.4 mg PO DAILY 09/04/24 09/04/24 History Zolpidem Tartrate [Ambien] 10 mg PO HS PRN 09/04/24 09/04/24 History Allergies Allergy/AdvReac Type Severity Reaction Status Date / Time cephalexin monohydrate AdvReac Rash/Hives Verified 09/04/24 15:37 [From Keflex] propoxyphene HCl AdvReac Rash/Hives Verified 09/04/24 15:37 [From Darvon] Surgical - Exam - General no distress, no pain - Eyes normal ocular movement, no pale - ENT normal nares, normal mucosa - Respiratory normal expansion, normal respiratory effort - Abdomen Abdomen: soft, non tender, no distended - Psychiatric oriented to time, oriented to person, oriented to place Assessment and Plan Assessment: OR for cystoscopy, clot evacuation, possible TURBT, possible bilateral retrograde pyelogram
[~2024-09-08 10:50] MED LIST: CIPROFLOXACIN/DEXTROSE PMX 400 MG in DEXTROSE/WATER 1 200ML.BAG IVPB PRN; LIDOCAINE 1% (10MG/ML) FOR IV START INTRADERMA PRN; MIDAZOLAM 2 MG/2 ML VIAL IV PRN
[2024-09-08] MEDS: fentaNYL (PF) 50 MCG/ML 2 ML AMP IVP PRN (12:00)
[2024-09-08] MEDS: DEXAMETHASONE SOD PHOSPHATE 4 MG/ML 1 ML VIAL IV ONE (12:00)
[2024-09-08] MEDS: ONDANSETRON 4 MG/2 ML VIAL IVP ONE (12:00)
[2024-09-08 12:21] LABS: ALT 19 U/L (4-49); AST 27 U/L (17-59); African American GFR (CKD) 55 (>60 ml/min/1.73 sqM); Albumin 3.7 g/dL (3.5-5.0); Alkaline Phosphatase 124 U/L (38-126); Anion Gap 9 mmol/L; Blood Urea Nitrogen 18 mg/dL (9-20); Calcium 9.1 mg/dL (8.4-10.2); Carbon Dioxide 31 mmol/L (22-30); Chloride 86 mmol/L (98-107); Glucose 126 mg/dL (74-99); Non-African American GFR(CKD) 47 (>60 ml/min/1.73 sqM); Potassium 3.5 mmol/L (3.5-5.1); Sodium 126 mmol/L (137-145); Total Bilirubin 0.7 mg/dL (0.2-1.3); Total Protein 5.9 g/dL (6.3-8.2)
[2024-09-08] MEDS ORDERED: PROPRANOLOL 10 MG TAB PO PRN (12:42)
[2024-09-08] MEDS ORDERED: MORPHINE SULFATE IR 15 MG TABLET PO PRN (12:42)
[2024-09-08] MEDS ORDERED: ALPRAZolam 0.25 MG TAB PO PRN (12:42)
[2024-09-08] MEDS ORDERED: ACETAMINOPHEN TAB 325 MG TAB PO PRN (16:40)
--- NOTE | 2024-09-08 16:42 | P.CONS ---
History of Present Illness - Reason for Consult Consult date: 09/08/24 Medical management for hyponatremia Requesting physician: Trae Anderson - History of Present Illness History of Presenting Illness: Patient is a pleasant 74-year-old male with a past medical history of hypertension, hyperlipidemia, chronic back pain, and peripheral vascular disease under care of Dr. Schofield on daily Bumex. Patient reports he was under treatment outpatient for UTI and short while later developed gross hematuria approximately 1 week ago. He was evaluated by Dr. Anderson in his office and was scheduled today to undergo cystoscopy and clot evacuation. Prior to completion of surgical procedure, patient was found to have preoperative sodium of 126. We were consulted for medical management and treatment of hyponatremia. Patient seen and fully evaluated in room 482. Caceres catheter is in place with moderate dark red bloody drainage in Caceres catheter tubing and drainage bag. Patient denies having any abdominal or suprapubic pain. Reports acute on chronic lower back pain from hospital bed but currently denies having any other complaints, concerns, questions, or needs at. Patient and family at bedside were updated on plan of care and plan for IV fluid hydration with repeat sodium to be drawn this evening at 6 PM and again tomorrow morning. Additional changes may be needed pending these results. Patient denies having any headache, lightheadedness, dizziness, chest pain, palpitations, shortness of breath, or experiencing any numbness/tingling/weakness in his extremities Review of systems: Pertinent positives and negatives as discussed in HPI, a complete review of systems was performed and all other systems are negative. Physical exam: Vital signs reviewed and stable. General: Nontoxic, no distress and appears stated age. Derm: Skin warm and dry, normal coloration for ethnicity. Head: Atraumatic, normocephalic and symmetric. Eyes: EOM's intact, no lid lag, and anicteric sclera Mouth: no lip lesions, mucus membranes moist Cardiovascular: regular rate and rhythm with normal S1S2, systolic murmur, positive posterior tibial pulses bilaterally, and cap refill < 2 seconds. Lungs: Respirations even, regular, and unlabored on room air. Lungs CTA bilaterally, no rhonchi, no rales, no wheezing, and no accessory muscle usage. Abdominal: soft, nontender to palpation, no guarding, no appreciable organomegaly. Caceres catheter in place with dark red blood colored urine in Caceres catheter tube and drainage bag. Ext: ROM intact. No gross muscle atrophy, no edema, no contractures Neuro: Speech clear, face symmetrical and CN II-XII grossly intact with no noted focal neuro deficits Psych: Alert and oriented to person, place, time, and situation. Appropriate and pleasant affect. Assessment and Plan of Care: Hyponatremia Acute kidney injury, believed to be secondary to dehydration -Likely secondary to daily diuretics with Bumex along with dehydration as patient has been n.p.o. since yesterday evening. -Patient started on gentle IV fluid hydration with 0.9% normal saline at 100 cc/h. Will trend sodium levels with first repeat sodium level this evening at 6 PM to monitor for improvement and make adjustments to IV fluids and place additional orders if needed. -Order placed for TSH, pending repeat sodium level may consider further hypona tremic workup. -Telemetry monitoring. -Hold nephrotoxic medications including losartan and Bumex. Continue close monitoring of renal function with repeat a.m. labs. Gross hematuria -Hemoglobin drawn on 09/02/2024 was 9.2. Order placed for CBC, will trend hemoglobin and transfuse if indicated for hemoglobin less than 7. -Continue Caceres catheter care. -Monitor I's and O's. Hypertension -Monitor vital signs. Losartan held at this time secondary to SIGIFREDO. Blood pressure currently controlled at 114/37. Hyperlipidemia Continue atorvastatin 10 mg nightly. Chronic back pain, opioid dependent -Patient requesting IV pain medication secondary to uncontrolled chronic lower back pain. MS Contin held at this time and orders placed for Tylenol 650 mg every 6 hours as needed for mild pain, [place] 5/325 mg tablets every 4 hours as needed for moderate pain, and morphine 4 mg IVP every 4 hours as needed for severe pain. Peripheral vascular disease -Patient to continue to follow-up outpatient with Dr. Schofield for management. Recommend MG hose and elevation of lower extremities when not in use. Bumex held at this time. Data and imaging reviewed: Reviewed preoperative labs drawn 09/02/2024 showing hemoglobin of 9.2 and sodium of 127. Repeat sodium this morning resulting at 126. Vital signs reviewed. Blood pressure 114/37, heart rate 105, respiratory rate 17, temp 98.3 F, and SpO2 of 97% on room air Thank you for allowing us to participate in the care of this pleasant patient. Do not hesitate to contact us with questions. Someone can be reached from the [facility] hospitalist group all hours of the day at [phone] or via perfect serve. Patient was seen independently by Nurse Practitioner. This document was prepared using [employer] dictation software. Please allow for errors in colon and rectal surgeon while rare they do occur. Anthony Israel NP rendered care for this patient independently, reviewed the findings and plan as documented in the note above and agree with plan. I did not physically speak with or examine the patient on this date. Past Medical History Past Medical History: Hyperlipidemia, Hypertension, Musculoskeletal Disorder, Osteoarthritis (OA) Additional Past Medical History / Comment(s): gentry leg swelling, currently on antibiotics for UTI, has urinary catheter. pt c/o recent weakness & fatigue. chronic back pain, scoliosis, ruptured discs. History of Any Multi-Drug Resistant Organisms: None Reported Past Surgical History: Hernia Repair, Tonsillectomy Additional Past Surgical History / Comment(s): colonoscopy Past Anesthesia/Blood Transfusion Reactions: No Reported Reaction Smoking Status: Never smoker - Past Family History Mother Family Medical History: Cancer Brother(s) Family Medical History: Cancer Additional Family Medical History / Comment(s): prostate ca Medications and Allergies Home Medications Medication Instructions Recorded Confirmed Type ALPRAZolam [Xanax] 0.25 mg PO DAILY PRN 09/22/14 09/08/24 History Aspirin 81 mg PO DAILY 09/22/14 09/08/24 History Atorvastatin [Lipitor] 10 mg PO DAILY 09/22/14 09/08/24 History Propranolol [Inderal] 10 mg PO DAILY PRN 09/22/14 09/08/24 History Bumetanide [Bumex] 1 mg PO TID 09/04/24 09/08/24 History Ciprofloxacin HCl [Cipro] 500 mg PO BID 09/04/24 09/08/24 History Ergocalciferol [Vitamin D2 (1250 1,250 mcg PO WEEKLY 09/04/24 09/08/24 History Mcg = 47655 Iu)] Losartan [Cozaar] 25 mg PO DAILY 09/04/24 09/08/24 History Morphine Sulfate Ir [MSIR] 30 mg PO Q4HR PRN 09/04/24 09/08/24 History Potassium Chloride ER [K-Dur 10] 10 meq PO DAILY 09/04/24 09/08/24 History Tamsulosin [Flomax] 0.4 mg PO DAILY 09/04/24 09/08/24 History Zolpidem Tartrate [Ambien] 10 mg PO HS PRN 09/04/24 09/08/24 History Allergies Allergy/AdvReac Type Severity Reaction Status Date / Time cephalexin monohydrate AdvReac Rash/Hives Verified 09/08/24 11:35 [From Keflex] propoxyphene HCl AdvReac Rash/Hives Verified 09/08/24 11:35 [From Darvon] Physical Exam Vitals: Vital Signs Temp Pulse Pulse Resp BP BP Pulse Ox 09/08/24 15:21 98.3 F 105 H 17 114/37 97 09/08/24 14:11 91 18 120/67 95 09/08/24 11:39 97.2 F L 88 18 145/74 98 Intake and Output 09/08/24 09/08/24 09/08/24 06:59 14:59 22:59 Output Total 700 Balance -700 Output: Urine 700 Other: Weight 93.1 kg Results CBC & Chem 7: 09/08/24 11:48 Labs: Abnormal Lab Results - Last 24 Hours (Table) 09/08/24 Range/Units 11:48 Sodium 126 L (137-145) mmol/L Chloride 86 L (98-107) mmol/L Carbon Dioxide 31 H (22-30) mmol/L Creatinine 1.44 H (0.66-1.25) mg/dL Glucose 126 H (74-99) mg/dL Total Protein 5.9 L (6.3-8.2) g/dL
[2024-09-08] MEDS: LACTATED RINGERS 1,000 ML IV SCH (17:21)
[2024-09-08] MEDS: MORPHINE SULFATE 4 MG/ML SYRINGE IV PRN (17:23)
[2024-09-08] MEDS: SODIUM CHLORIDE 0.9% 1,000 ML IV SCH (17:24)
--- NOTE | 2024-09-08 18:10 | CT ---
EXAMINATION TYPE: CT abdomen pelvis wo con DATE OF EXAM: 09/08/2024 5:51 PM COMPARISON: None. CLINICAL INDICATION: Male, 74 years old with history of Hematuria, gross hematuria/ UTI TECHNIQUE: Axial images with sagittal coronal reformats. Examination of the solid and hollow viscera is limited given the lack of contrast. CT DLP: 868.1 mGycm, Automated exposure control for dose reduction was used. FINDINGS: LUNG BASES: No evidence for nodule. No evidence for infiltrate. LIVER/GB: The gallbladder is unremarkable. No space-occupying hepatic lesion. PANCREAS: No pancreatic mass identified. No inflammatory process seen. SPLEEN: No evidence for splenomegaly. No intrasplenic lesions seen. ADRENALS: No adrenal nodules identified. No evidence for thickening. KIDNEYS: No evidence for renal mass. No nephrolithiasis. No hydronephrosis. There is hyperdensity wit hin the urinary bladder compatible with the provided history of hematuria. Caceres balloon catheter is noted to be in place. BOWEL: Appendix has a normal appearance. No evidence of bowel obstruction. No inflammatory process. S igmoid diverticulosis. Lymph nodes: No evidence for adenopathy greater than 1 cm. Abdominal aorta: Atheromatous changes seen. No evidence for aneurysm. Genital organs: No significant abnormality. Other: No significant abnormality. IMPRESSION: There is hyperdensity within the urinary bladder compatible with the provided history of hematuria. F oley balloon catheter is noted to be in place. NO RENAL CALCULUS OR VISIBLE RENAL MASS. URINARY BLADD ER IS LIMITED IN EVALUATION. [facility], , 09/08/2024 6:08 PM
[2024-09-08 18:39] LABS: African American GFR (CKD) 59 (>60 ml/min/1.73 sqM); Anion Gap 10 mmol/L; Blood Urea Nitrogen 17 mg/dL (9-20); Calcium 9.2 mg/dL (8.4-10.2); Carbon Dioxide 31 mmol/L (22-30); Chloride 86 mmol/L (98-107); Glucose 186 mg/dL (74-99); Non-African American GFR(CKD) 51 (>60 ml/min/1.73 sqM); Potassium 3.6 mmol/L (3.5-5.1); Sodium 127 mmol/L (137-145)
[2024-09-08 19:11] LABS: HCT 20.7 % (39.6-50.0); MCH 30.7 pg (27.0-32.0); MCHC 34.3 g/dL (32.0-37.0); MCV 89.6 fL (80.0-97.0); Mean Platelet Volume 11.3 fL (9.5-12.2); Platelet Count 255 10*3/uL (140-440); RBC 2.31 10*6/uL (4.40-5.60); RDW 13.5 % (11.5-14.5); WBC 5.75 10*3/uL (4.50-10.00)
[2024-09-08 19:12] LABS: HGB 7.1 g/dL (13.0-17.0)
[2024-09-09 08:18] LABS: BUN/Creat Ratio 12.08 Ratio (12.00-20.00); Blood Urea Nitrogen 14.5 mg/dL (9.0-27.0); Calcium 8.4 mg/dL (8.7-10.3); Carbon Dioxide 28.3 mmol/L (21.6-31.8); Chloride 95 mmol/L (96-109); Glucose 127 mg/dL (70-110); Magnesium 2.4 mg/dL (1.5-2.4); Potassium 4.1 mmol/L (3.5-5.5); Sodium 134 mmol/L (135-145)
[2024-09-09] MEDS: TAMSULOSIN 0.4 MG CAP.ER.24H PO SCH (08:24)
[2024-09-09] MEDS: ATORVASTATIN 10 MG TAB PO SCH (08:24)
[2024-09-09] MEDS: POTASSIUM CHLORIDE ER 10 MEQ TAB.ER.PRT PO SCH (08:24)
[2024-09-09] MEDS ORDERED: LOSARTAN 25 MG TAB PO SCH (09:00)
[2024-09-09 09:03] LABS: HCT 18.9 % (39.6-50.0); HGB 6.2 g/dL (13.0-17.0); MCH 29.8 pg (27.0-32.0); MCHC 32.8 g/dL (32.0-37.0); MCV 90.9 FL (80.0-97.0); Mean Platelet Volume 11.6 FL (9.5-12.2); NRBC Per 100 WBC 0 X 10*3/uL (0.00-0.01); Platelet Count 245 X 10*3/uL (140-440); RBC 2.08 X 10*6/uL (4.40-5.60); RDW 14.1 % (11.5-14.5); WBC 4.87 X 10*3/uL (4.50-10.00)
[2024-09-09 09:10] LABS: Basophils # (A) 0.01 X 10*3/uL (0.00-0.10); Basophils % (A) 0.2 %; Eosinophils # (A) 0 X 10*3/uL (0.04-0.35); Eosinophils % (A) 0 %; Lymphocytes # (A) 0.97 X 10*3/uL (0.90-5.00); Lymphocytes % (A) 19.9 %; Monocytes # (A) 0.39 X 10*3/uL (0.20-1.00); Neutrophils # (A) 3.47 X 10*3/uL (1.80-7.70); Neutrophils % (A) 71.3 %
[2024-09-09] MEDS ORDERED: MIDAZOLAM 2 MG/2 ML VIAL ONE (12:21)
[2024-09-09] MEDS ORDERED: PROPOFOL 10 MG/ML 20 ML VIAL IV ONE (12:21)
[2024-09-09] MEDS ORDERED: HYDROmorphone (PF) 1 MG/ML ONE (12:21)
[2024-09-09] MEDS ORDERED: fentaNYL (PF) 50 MCG/ML 2 ML AMP ONE (12:21)
[2024-09-09] MEDS ORDERED: SUCCINYLCHOLINE CHLORIDE 200 MG/10 ML VIAL IV ONE (12:21)
[2024-09-09] MEDS ORDERED: ROCURONIUM 10 MG/ML (5 ML VIAL) IV ONE (12:21)
[2024-09-09] MEDS ORDERED: SUGAMMADEX SODIUM 100 MG/ML SYR IV ONE (12:21)
[2024-09-09] MEDS ORDERED: LIDOCAINE 1% INJ 10MG/ML (20 ML MDV) ONE (12:21)
[2024-09-09] MEDS: SODIUM CHLORIDE 0.9% 1,000 ML IV ONE (12:26)
[2024-09-09] MEDS: LACTATED RINGERS 1,000 ML IV ONE (12:26)
[2024-09-09] MEDS: IV FLUID CONTINUATION 1,000 ML IV ONE (13:19)
--- NOTE | 2024-09-09 13:25 | P.OP ---
Date of Procedure: 09/09/24 Preoperative Diagnosis: Gross hematuria Postoperative Diagnosis: Gross hematuria, bladder mass Procedure(s) Performed: Cystoscopy, clot evacuation, TURBT(large) Anesthesia: MELANY Surgeon: Trae Anderson Estimated Blood Loss (ml): 25 Pathology: other (Bladder mass) Condition: stable Disposition: PACU Indications for Procedure: This is a 74-year-old male with history of gross hematuria. Patient has been having gross hematuria's for the past week, he is currently catheter dependent secondary to clot retention. Underwent an office cystoscopy, I was unable to get a good visualization of the bladder secondary to significant clot burden in the bladder. Discussed with him the next up would be to proceed with a cystoscopy and clot evacuation, following the clot evacuation will fully evaluate the bladder. Discussed with him if there is evidence of tumor within the bladder then we will proceed with TURBT. Discussed also potential of doing a bilateral retrograde pyelogram to evaluate the upper tract. Risk of bleeding, infection, bladder perforation was discussed. He understood all the risk and agreed to proceed Operative Findings: 300 cc of clot was irrigated out of the bladder, a flat sessile mass along the right lateral wall and extended to the right trigone measured 6 cm Description of Procedure: Patient brought to the operating, general anesthesia was induced. He was prepped and draped in sterile fashion placed in dorsolithotomy position. Resectoscope with a 26 Czech sheath was inserted per urethra, cystoscopy was performed showed significant clot burden in the bladder. Using the ellick evacuator approximately 300 cc of clot was irrigated out, at this point repeat cystoscopy was performed which showed a large sessile mass along the right lateral wall, the mass did extend into the trigone along the right side. Using the resectoscope the tumor was resected down to muscle, area of resection was thoroughly fulgurated. Of note the tumor was in close proximity to the right ureteral orifice but the right ureter orifice was not resected. Repeat cystoscopy showed no evidence of bleeding, any additional lesions within the bladder or evidence of bladder perforation. The total area of resection was 6 cm. At this time the resectoscope was withdrawn and a 20 Czech Caceres was placed with a return of clear urine, the catheter was irrigated to clear. Patient tolerated the procedure was taken to recovery in stable condition
[2024-09-09] MEDS: HYDROmorphone 1 MG/ML 1 ML SYRINGE IVP STA ×2 (13:45→17:50)
[2024-09-09] MEDS: HYDROmorphone 0.5 MG/0.5 ML SYRINGE IVP PRN (14:17)
--- NOTE | 2024-09-09 15:14 | P.PN ---
Subjective Progress Note Date: 09/09/24 Hospital Course: Patient is a pleasant 74-year-old male with a past medical history of hypertension, hyperlipidemia, chronic back pain, and peripheral vascular disease under care of Dr. Schofield on daily Bumex. Patient reports he was under treatment outpatient for UTI and later developed gross hematuria approximately 1 week ago. He was evaluated by Dr. Anderson in his office and was scheduled today to undergo cystoscopy and clot evacuation. Prior to undergoing surgical proce dure, patient was found to have preoperative sodium of 126. We were consulted for medical management and treatment of hyponatremia. Physical exam: Patient seen and fully evaluated at bedside this morning. He reports chronic lower back pain, but currently denies any other complaints including abdominal pain or discomfort, dizziness, lightheadedness, chest pain, palpitations, or shortness of breath. Patient updated on current hemoglobin level and orders for transfusion of 2 units PRBCs, discussed with both patient and his brother at bedside. All questions answered. After blood transfusion is completed, patient may proceed with planned cystoscopy and clot evaluation with Dr. Anderson. Vital signs reviewed and stable. General: Nontoxic, no distress and appears stated age. Derm: Skin warm and dry, normal coloration for ethnicity. Head: Atraumatic, normocephalic and symmetric. Eyes: EOM's intact, no lid lag, and anicteric sclera Mouth: no lip lesions, mucus membranes moist Cardiovascular: regular rate and rhythm with normal S1S2, systolic murmur, positive posterior tibial pulses bilaterally, and cap refill < 2 seconds. Lungs: Respirations even, regular, and unlabored on room air. Lungs CTA bilaterally, no rhonchi, no rales, no wheezing, and no accessory muscle usage. Abdominal: soft, nontender to palpation, no guarding, no appreciable organomeg jose. Caceres catheter in place with ruiz colored urine in Caceres catheter tube and drainage bag. Ext: ROM intact. No gross muscle atrophy, 1-2+ BLE edema, no contractures Neuro: Speech clear, face symmetrical and CN II-XII grossly intact with no noted focal neuro deficits Psych: Alert and oriented to person, place, time, and situation. Appropriate and pleasant affect. Assessment and Plan of Care: Acute blood loss anemia Gross hematuria -Hemoglobin 6.2. Order placed for 2 units PRBCs. Will continue to trend hemoglobin levels and transfuse if indicated for hemoglobin less than 7. -Urology following and planning to take patient for cystoscopy with clot evacuation later today. Discussed case in detail with urologist, Dr. Anderson. -Continue Caceres catheter care. -Monitor I's and O's. Hypochloremic hyponatremia Acute kidney injury, believed to be secondary to dehydration Metabolic alkalosis -Secondary to daily diuretic use with Bumex along with dehydration, as patient was been NPO for scheduled surgery. -Patient started on gentle IV fluid hydration with 0.9% normal saline at 100 cc/h. Sodium was trended with results of 126-127 up to 134. Patient remains n.p.o. pending surgery and normal saline infusion was decreased to 50 cc/h. -Renal function improving with BUN of 14.5, creatinine 1.2, and GFR of 63. -Telemetry monitoring. -Hold nephrotoxic medications including losartan and Bumex. Continue close monitoring of renal function with repeat a.m. labs. Hypertension -Monitor vital signs. Losartan held at this time secondary to SIGIFREDO. Blood pressure currently controlled at 104/49 Hyperlipidemia Continue atorvastatin 10 mg nightly. Chronic back pain, opioid dependent -Patient requesting IV pain medication secondary to uncontrolled chronic lower back pain. MS Contin held at this time and orders placed for Tylenol 650 mg every 6 hours as needed for mild pain, [place] 5/325 mg tablets every 4 hours as needed for moderate pain, and morphine 4 mg IVP every 4 hours as needed for severe pain. Peripheral vascular disease with chronic bilateral lower extremity edema -Patient to continue to follow-up outpatient with Dr. Schofield for management. Recommend MG hose and elevation of lower extremities when not in use. Bumex held at this time. Data and imaging reviewed: Labs reviewed. Hemoglobin trended resulting at 7.1 and this morning 6.2 with hematocrit of 18.9. Orders placed for transfusion 2 units PRBCs. Sodium also trended resulting at 126, 127, and 134. 0.9% normal saline infusion decreased to 50 cc/h. Renal function improving from previous BUN of 18, creatinine of 1.44 and GFR of 47 with current renal function showing BUN of 14.5, creatinine 1.2, GFR of 63. Blood glucose 127. Magnesium 2.4. Vital signs reviewed. Blood pressure 104/49, heart rate 61, respiratory rate 19, temp 97.4 F, and SpO2 of 98% on room air. Thank you for allowing us to participate in the care of this pleasant patient. Do not hesitate to contact us with questions. Someone can be reached from the [facility] hospitalist group all hours of the day at [phone] or via perfect serve. Patient was seen independently by Nurse Practitioner. This document was prepared using [employer] dictation software. Please allow for errors in cloth handler while rare they do occur. Anthony Israel NP rendered care for this patient independently, reviewed the findings and plan as documented in the note above and agree with plan. I did not physically speak with or examine the patient on this date. Objective - Vital Signs Vital signs: Vital Signs Temp 97.4 F L 09/09/24 07:55 Pulse 61 09/09/24 07:55 Resp 19 09/09/24 07:55 BP 104/49 09/09/24 07:55 Pulse Ox 98 09/09/24 07:55 FiO2 Intake & Output 09/08/24 09/09/24 09/09/24 18:59 06:59 18:59 Output Total 700 Balance -700 Weight 93.1 kg Output: Urine 700 Other: Voiding Method Indwelling Catheter - Labs CBC & Chem 7: 09/09/24 02:36 09/09/24 02:36 Labs: Abnormal Lab Results - Last 24 Hours (Table) 09/08/24 09/08/24 09/08/24 Range/Units 11:48 17:56 18:20 RBC 2.31 L (4.40-5.60) 10*6/uL Hgb 7.1 L D (13.0-17.0) g/dL Hct 20.7 L (39.6-50.0) % Eosinophils # (0.04-0.35) X 10*3/uL Sodium 126 L 127 L (137-145) mmol/L Chloride 86 L 86 L (98-107) mmol/L Carbon Dioxide 31 H 31 H (22-30) mmol/L Creatinine 1.44 H 1.35 H (0.66-1.25) mg/dL Glucose 126 H 186 H (74-99) mg/dL Calcium (8.7-10.3) mg/dL Total Protein 5.9 L (6.3-8.2) g/dL 09/09/24 09/09/24 Range/Units 02:36 02:36 RBC 2.08 L (4.40-5.60) 10*6/uL Hgb 6.2 A* (13.0-17.0) g/dL Hct 18.9 A* (39.6-50.0) % Eosinophils # 0 L (0.04-0.35) X 10*3/uL Sodium 134 L (137-145) mmol/L Chloride 95 L (98-107) mmol/L Carbon Dioxide (22-30) mmol/L Creatinine (0.66-1.25) mg/dL Glucose 127 H (74-99) mg/dL Calcium 8.4 L (8.7-10.3) mg/dL Total Protein (6.3-8.2) g/dL
[2024-09-09 19:20] LABS: HCT 28.7 % (39.6-50.0); MCHC 33.4 g/dL (32.0-37.0); MCV 89.7 fL (80.0-97.0); Mean Platelet Volume 11.3 fL (9.5-12.2); Platelet Count 281 10*3/uL (140-440); RDW 14.2 % (11.5-14.5); WBC 12.33 10*3/uL (4.50-10.00)
[2024-09-09 19:32] LABS: HGB 9.6 g/dL (13.0-17.0)
[2024-09-09] MEDS: ZOLPIDEM 5 MG TAB PO PRN (23:52)
[2024-09-10] MEDS: HYDROcodone/APAP 5-325MG 1 EACH TAB PO PRN (03:19)
[2024-09-10 08:18] LABS: HCT 23.8 % (39.6-50.0); HGB 7.8 g/dL (13.0-17.0); MCH 29.8 pg (27.0-32.0); MCHC 32.8 g/dL (32.0-37.0); MCV 90.8 FL (80.0-97.0); Mean Platelet Volume 11.5 FL (9.5-12.2); NRBC Per 100 WBC 0 X 10*3/uL (0.00-0.01); Platelet Count 234 X 10*3/uL (140-440); RBC 2.62 X 10*6/uL (4.40-5.60); RDW 14.6 % (11.5-14.5); WBC 9.53 X 10*3/uL (4.50-10.00)
[2024-09-10 08:36] LABS: BUN/Creat Ratio 10.25 Ratio (12.00-20.00); Blood Urea Nitrogen 12.3 mg/dL (9.0-27.0); Calcium 8.4 mg/dL (8.7-10.3); Carbon Dioxide 24.3 mmol/L (21.6-31.8); Chloride 100 mmol/L (96-109); Glucose 90 mg/dL (70-110); Magnesium 2.2 mg/dL (1.5-2.4); Potassium 4.2 mmol/L (3.5-5.5); Sodium 136 mmol/L (135-145)
[2024-09-10 08:55] VITALS: BP 100/64; PULSE 70; RESP 17; TEMP 97.8
--- NOTE | 2024-09-10 11:42 | P.PN ---
Subjective Progress Note Date: 09/10/24 Principal diagnosis: Hematuria, bladder tumor The patient underwent cystoscopy with evacuation of clot and bladder tumor resection yesterday. His urine is clear today. He reports discomfort at the urethral meatus but otherwise has no complaints. Objective - Vital Signs Vital signs: Vital Signs Temp 97.8 F 09/10/24 07:55 Pulse 70 09/10/24 07:55 Resp 17 09/10/24 07:55 BP 100/64 09/10/24 07:55 Pulse Ox 97 09/10/24 07:55 FiO2 Intake & Output 09/09/24 09/10/24 09/10/24 18:59 06:59 18:59 Intake Total 1320 Output Total 588 433 8346 Balance 595 -450 -1050 Intake: IV 700 Blood Product 620 Rc As-1 Unit 310 [id number] Rc As-1 Unit 310 [id number] Output: Urine 153 417 9461 Estimated Blood Loss 25 Other: Voiding Method Indwelling Catheter Indwelling Catheter Indwelling Catheter - Constitutional General appearance: Present: average body habitus, cooperative, no acute distress - Genitourinary Genitourinary Comment(s): Caceres catheter intact, draining clear urine. - Psychiatric Psychiatric: Present: A&O x's 3 - Labs CBC & Chem 7: 09/10/24 05:04 09/10/24 05:04 Labs: Abnormal Lab Results - Last 24 Hours (Table) 09/09/24 09/09/24 09/10/24 Range/Units 08:05 18:17 05:04 WBC 12.33 H (4.50-10.00) 10*3/uL RBC 3.20 L 2.62 L (4.40-5.60) 10*6/uL Hgb 9.6 L D 7.8 L (13.0-17.0) g/dL Hct 28.7 L 23.8 L (39.6-50.0) % RDW 14.6 H (11.5-14.5) % BUN/Creatinine Ratio (12.00-20.00) Ratio Calcium (8.7-10.3) mg/dL Crossmatch See Detail 09/10/24 Range/Units 05:04 WBC (4.50-10.00) 10*3/uL RBC (4.40-5.60) 10*6/uL Hgb (13.0-17.0) g/dL Hct (39.6-50.0) % RDW (11.5-14.5) % BUN/Creatinine Ratio 10.25 L (12.00-20.00) Ratio Calcium 8.4 L (8.7-10.3) mg/dL Crossmatch Assessment and Plan (1) Hematuria Current Visit: No Status: Acute Code(s): R31.9 - HEMATURIA, UNSPECIFIED SNOMED Code(s): 96710563 Plan: The patient's condition is stable. A repeat CBC has been ordered. I have discussed his care with Dr. Acosta, and he is in agreement that Mr. Gomez may be discharged home later today if his hemoglobin level is stable.
[2024-09-10 11:59] LABS: HCT 24.5 % (39.6-50.0); MCHC 33.1 g/dL (32.0-37.0); MCV 90.7 fL (80.0-97.0); Mean Platelet Volume 10.4 fL (9.5-12.2); Platelet Count 240 10*3/uL (140-440); RDW 14.3 % (11.5-14.5); WBC 8.35 10*3/uL (4.50-10.00)
[2024-09-10 12:07] LABS: HGB 8.1 g/dL (13.0-17.0)
--- NOTE | 2024-09-10 13:17 | P.DS ---
Providers Date of admission: 09/08/24 13:01 Expected date of discharge: 09/10/24 Attending physician: Trae Anderson MD Consults: 09/08/24 12:56 Consult Physician Urgent Consulting Provider: Deann Chandra Consult Reason/Comments: PT TO BE ADMITTED Do you want consulting provider notified?: Yes Primary care physician: Aaron Aviles - Discharge Diagnosis(es) (1) Hematuria Current Visit: No Status: Acute Hospital Course: The patient is a 74-year-old white male with gross hematuria for the past week. He now has a Cacrees catheter due to urinary retention. He was scheduled to undergo cystoscopy with evacuation of clot on September 08, 2024. However, preoperative labs showed that his sodium level was 126, and he was admitted. He was treated for the hyponatremia, and underwent the planned cystoscopic procedure on September 09, 2024. Approximately 300 cc of clot were irrigated from the bladder, and this allowed adequate inspection of the bladder revealing a tumor, which was resected. A Caceres catheter was left in place. The following day, the patient's condition was stable. The Caceres catheter was draining clear urine. The hemoglobin level was stable at 8.1. Procedures: Cystoscopy, evacuation of clot, transurethral resection of bladder tumor on September 09, 2024. Patient Condition at Discharge: Good Plan - Discharge Summary Discharge Rx Participant: No New Discharge Prescriptions: Continue Atorvastatin [Lipitor] 10 mg PO DAILY Propranolol [Inderal] 10 mg PO DAILY PRN PRN Reason: tremors ALPRAZolam [Xanax] 0.25 mg PO DAILY PRN PRN Reason: Anxiety Tamsulosin [Flomax] 0.4 mg PO DAILY Potassium Chloride ER [K-Dur 10] 10 meq PO DAILY Zolpidem Tartrate [Ambien] 10 mg PO HS PRN PRN Reason: Insomnia Losartan [Cozaar] 25 mg PO DAILY Morphine Sulfate Ir [MSIR] 30 mg PO Q4HR PRN PRN Reason: Pain Ergocalciferol [Vitamin D2 (1250 Mcg = 88034 Iu)] 1,250 mcg PO WEEKLY Changed Bumetanide [BUMEX] 1 mg PO DAILY #0 Discontinued Aspirin 81 mg PO DAILY No Action Ciprofloxacin HCl [Cipro] 500 mg PO BID Discharge Medication List ALPRAZolam [Xanax] 0.25 mg PO DAILY PRN 09/22/14 [History] Atorvastatin [Lipitor] 10 mg PO DAILY 09/22/14 [History] Propranolol [Inderal] 10 mg PO DAILY PRN 09/22/14 [History] Ciprofloxacin HCl [Cipro] 500 mg PO BID 09/04/24 [History] Ergocalciferol [Vitamin D2 (1250 Mcg = 75632 Iu)] 1,250 mcg PO WEEKLY 09/04/24 [History] Losartan [Cozaar] 25 mg PO DAILY 09/04/24 [History] Morphine Sulfate Ir [MSIR] 30 mg PO Q4HR PRN 09/04/24 [History] Potassium Chloride ER [K-Dur 10] 10 meq PO DAILY 09/04/24 [History] Tamsulosin [Flomax] 0.4 mg PO DAILY 09/04/24 [History] Zolpidem Tartrate [Ambien] 10 mg PO HS PRN 09/04/24 [History] Bumetanide [BUMEX] 1 mg PO DAILY #0 09/10/24 [Rx] Follow up Appointment(s)/Referral(s): Trae Anderson MD [STAFF PHYSICIAN] - 09/16/24 11:40 am [facility] Visiting Nurse, [NON-STAFF] - 1 Week (will call to set up appointment any questions please call agency. ) Activity/Diet/Wound Care/Special Instructions: Discharge home with Caceres catheter. Avoid straining and strenuous activity. Drink plenty of fluids. Hold aspirin for 5 days. May resume other home medications. Discharge/Stand Alone Forms: [facility] Discharge Disposition: HOME SELF-CARE
--- NOTE | 2024-09-10 13:28 | P.PN ---
Subjective Progress Note Date: 09/10/24 Subjective: Patient seen and examined at bedside. No acute events overnight. Complaining of some back pain. Pertinent positives and negatives as discussed above, a complete review of systems was performed and all other systems are negative. Vitals Signs Reviewed. General: Nontoxic, no distress, appears at stated age Derm: Warm, dry Head: Atraumatic, normocephalic, symmetric Eyes: EOMI, no lid lag, anicteric sclera Mouth: No lip lesion, mucus membranes moist Cardiovascular: S1S2 reg, no murmur Lungs: CTA bilateral, no rhonchi, no rales, no accessory muscle use Abdominal: Soft, nontender to palpation, no guarding, no appreciable organomegaly Ext: No gross muscle atrophy, no edema, no contractures Neuro: CN II-XI grossly intact, no focal neuro deficits Psych: Alert, oriented, appropriate affect Data Reviewed Today: Pertinent Labs: Hemoglobin 8.1, sodium 136, creatinine 1.2, magnesium 2.2 Imaging: No new imaging Assessment and Plan: Active: Gross hematuria Acute blood loss anemia status post 2 units PRBCs BPH - Status post TURBT - Continue to hold aspirin - Discussed with urology, discharged today as hemoglobin has been stable Hyponatremia, hypovolemic, resolved SIGIFREDO, resolved - Discontinued IV fluids - Reduced home Bumex to 1 mg daily Hyperlipidemia-continue atorvastatin 10 daily Hypertension-continue losartan 25 daily Patient is medically optimized for discharge. Thank you for allowing us to participate in the care of this pleasant patient. Do not hesitate to contact us with questions. Someone can be reached from the [facility] hospitalist group all hours of the day at [phone] or via perfect serve. Objective - Vital Signs Vital signs: Vital Signs Temp 97.8 F 09/10/24 07:55 Pulse 70 09/10/24 07:55 Resp 17 09/10/24 07:55 BP 100/64 09/10/24 07:55 Pulse Ox 97 09/10/24 07:55 FiO2 Intake & Output 09/09/24 09/10/24 09/10/24 18:59 06:59 18:59 Intake Total 1320 Output Total 588 665 5505 Balance 595 -450 -1050 Intake: IV 700 Blood Product 620 Rc As-1 Unit 310 [id number] Rc As-1 Unit 310 [id number] Output: Urine 819 372 6850 Estimated Blood Loss 25 Other: Voiding Method Indwelling Catheter Indwelling Catheter Indwelling Catheter - Labs CBC & Chem 7: 09/10/24 11:48 09/10/24 05:04 Labs: Abnormal Lab Results - Last 24 Hours (Table) 09/09/24 09/10/24 09/10/24 Range/Units 18:17 05:04 05:04 WBC 12.33 H (4.50-10.00) 10*3/uL RBC 3.20 L 2.62 L (4.40-5.60) 10*6/uL Hgb 9.6 L D 7.8 L (13.0-17.0) g/dL Hct 28.7 L 23.8 L (39.6-50.0) % RDW 14.6 H (11.5-14.5) % BUN/Creatinine Ratio 10.25 L (12.00-20.00) Ratio Calcium 8.4 L (8.7-10.3) mg/dL 09/10/24 Range/Units 11:48 WBC (4.50-10.00) 10*3/uL RBC 2.70 L (4.40-5.60) 10*6/uL Hgb 8.1 L D (13.0-17.0) g/dL Hct 24.5 L (39.6-50.0) % RDW (11.5-14.5) % BUN/Creatinine Ratio (12.00-20.00) Ratio Calcium (8.7-10.3) mg/dL
--- NOTE | 2024-09-12 15:19 | CDI ---
Documentation Clarification Form Date: 09/12/2024 03:14:13 PM From: Priya Keating Phone: Admit Date: 09/08/2024 01:01:00 PM Patient Name: Clifford Gomez Visit Number: [id number] Discharge Date: 09/10/2024 03:08:00 PM ATTENTION: The Clinical Documentation Specialists (CDI) and [facility] Coding Staff appreciate your assistance in clarifying documentation. Please respond to the clarification below the line at the bottom and electronically sign. The CDI & [facility] Coding staff will review the response and follow-up if needed. Please note: Queries are made part of the Legal Health Record. If you have any questions, please contact the author of this message via ITS. 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 Coding guidelines do not allow coding professionals to code based on pathology results; therefore, clarification is requested. History/risk factors: 74yo M, Gross hematuria, ABLA, BPH w retention, SIGIFREDO, dehydration, HLD, HTN, hyponatremia,hypovolemic, chronic pain Clinical Indicators: bladdertumor" and consists of multipleelongated, rubbery, cauterized pink-esposito soft tissue fragments aggregating to 3.5 x 2.5 x 1 cm. The fragments are admixed withclottedblood. Treatment: TURBT Please clarify if you agree with the pathology report diagnosis of bladder urothelialcarcinoma: [ X] Yes [ ] No [ ] Other (please specify) [ ] Unable to determine (Template Last Revised: June 2020) MTDD
== END 2024-09-10 15:08 | disposition home or self-care (01) | DRG 669 ==
LOC: OR 10:50 → 4SSUR 13:01
PROVIDERS: ADMIT Urology; ATTEND Urology
PROC: 30233N1 Transfusion of Nonautologous Red Blood Cells into Peripheral Vein, Percutaneous Approach (ICD-10-PCS; 2024-09-09)
PROC: 0TBB8ZZ Excision of Bladder, Via Natural or Artificial Opening Endoscopic (ICD-10-PCS; principal; 2024-09-09 07:30)
PROC: 0TCB8ZZ Extirpation of Matter from Bladder, Via Natural or Artificial Opening Endoscopic (ICD-10-PCS; 2024-09-09 07:30)
DX: C67.6 Malignant neoplasm of ureteric orifice (principal); D62 Acute posthemorrhagic anemia; I10 Essential (primary) hypertension; I73.9 Peripheral vascular disease, unspecified; E87.1 Hypo-osmolality and hyponatremia; N17.9 Acute kidney failure, unspecified; E86.0 Dehydration; E78.5 Hyperlipidemia, unspecified; R31.0 Gross hematuria; G89.29 Other chronic pain; E86.1 Hypovolemia; Z79.891 Long term (current) use of opiate analgesic; Z79.82 Long term (current) use of aspirin; Z79.899 Other long term (current) drug therapy; Z80.42 Family history of malignant neoplasm of prostate; N40.1 Benign prostatic hyperplasia with lower urinary tract symptoms; R33.8 Other retention of urine; Z79.2 Long term (current) use of antibiotics
CPT/HCPCS: 74176; 80048; 80053; 83735; 84443; 85025; 85027; 86850; 86900; 86901; 86920; 88307

== ENCOUNTER → 2024-10-08 | Outpatient (CLI) | payer MEDICARE ==
--- NOTE | 2024-10-10 17:32 | PE ---
EXAMINATION TYPE: PET CT fusion skull to thigh DATE OF EXAM: 10/08/2024 CLINICAL INDICATION:Male, 74 years old with history of C67.8 Bladder CA; TECHNIQUE: Following the intravenous administration of 13.63 mCi of F-18 FDG, whole body images are performed from the skull base to the midthigh. Images are reviewed on the computer in the coronal, axial, and sagittal planes. Reconstructed rotating images are created on independent workstation and reviewed on the computer. A non-contrast CT is performed in conjunction with the PET scan. Glucose level 132 mg/dL CT DLP: 1070 mGycm, Automated exposure control for dose reduction was used. COMPARISON: CT 09/08/2024, PET/CT None, MRI: None FINDINGS: Mediastinal SUV mean is 2.2. Hepatic parenchyma SUV mean is 3.2. SKULL BASE AND NECK: No suspicious radiotracer activity. CHEST, MEDIASTINUM, AND HILAR REGION: No suspicious radiotracer activity. ABDOMEN AND PELVIS: Radiotracer fills the urinary bladder as expected. No suspicious radiotracer acti vity. MUSCULOSKELETAL STRUCTURES: No suspicious radiotracer activity. OTHER CT: Atherosclerotic calcification of the intracranial vasculature. Right maxillary sinus 1.6 cm mucous retention cyst versus polyp. Left maxillary sinus 0.9 cm retention cyst versus polyp. Mild at herosclerotic calcification of the carotid bulbs. 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 Mild bilateral gynecomastia. Mild cardiomegaly. Mild atherosclerotic calcification of the aorta and its branches. Extensive colonic diverticulosis without evidence for acute diverticulitis. S mall fat filled hernia. Small fat filled left elbow hernia. Multilevel degenerative changes of the sp ine. Levoscoliotic curvature of the lumbar spine. IMPRESSION: No suspicious radiotracer activity to suggest metastatic disease. [facility], , 10/10/2024 5:30 PM
== END | disposition home or self-care (01) ==
LOC: RADPETMAIN 13:41
PROVIDERS: ATTEND Internal Medicine Hematology & Oncology
DX: C67.8 Malignant neoplasm of overlapping sites of bladder (principal)
CPT/HCPCS: 78815; A9552